=== PATIENT | female | born 1945 | race Caucasian/White ===

== ENCOUNTER → 2018-05-31 | Outpatient (CLI) | payer MEDICARE | LOC: MAMMO 05-25 11:30 → RAD 09:49 → MAMMO 10:00 | DX: Z13.820 Encounter for screening for osteoporosis (principal); M85.852 Other specified disorders of bone density and structure, left thigh; M85.851 Other specified disorders of bone density and structure, right thigh; M85.88 Other specified disorders of bone density and structure, other site ==

== ENCOUNTER 2018-06-27 14:00 | Outpatient (RCR) | payer MEDICARE | END 2018-06-30 | disposition still patient (30) | LOC: PT | DX: M54.16 Radiculopathy, lumbar region (principal); M43.16 Spondylolisthesis, lumbar region; M48.061 Spinal stenosis, lumbar region without neurogenic claudication; M21.372 Foot drop, left foot; M99.83 Other biomechanical lesions of lumbar region; N31.9 Neuromuscular dysfunction of bladder, unspecified | CPT/HCPCS: G8978-GP; G8979-GP ==

== ENCOUNTER 2018-09-28 14:30 | Outpatient (RCR) | payer MEDICARE | END 2018-09-28 15:00 | disposition still patient (30) | LOC: PT 14:30 | DX: M48.061 Spinal stenosis, lumbar region without neurogenic claudication (principal); M54.16 Radiculopathy, lumbar region; M21.372 Foot drop, left foot; M43.16 Spondylolisthesis, lumbar region ==